=== PATIENT | female | born 1940 | race Caucasian/White ===

== ENCOUNTER 2016-10-25 13:27 | Day surgery (SDC) | payer OTHER ==
[2016-10-25] MEDS ORDERED: LIDOCAINE 1% 5 ML SDV ID PRN (14:23)
[2016-10-25] MEDS ORDERED: LR 1,000 ML IV ONE (14:23)
[2016-10-25] MEDS ORDERED: fentaNYL 100 MCG/2 ML INJ ONE (15:22)
[2016-10-25] MEDS ORDERED: PROPOFOL/EMULSION 500 MG/50 ML BOTTLE IV ONE (15:22)
[2016-10-25] MEDS ORDERED: MEPERIDINE 25 MG/ML SYR ONE (16:34)
[2016-10-25] MEDS ORDERED: ONDANSETRON 4 MG/2 ML VIAL ONE (16:58)
--- NOTE | 2016-10-25 19:11 | GPN ---
[f rep st] PROCEDURE NOTE PREPROCEDURE DIAGNOSIS: Positive Cologuard. POSTPROCEDURE DIAGNOSIS: Normal colonoscopy. MEDICATIONS: Monitored anesthesia care. INDICATIONS: The patient is a 76-year-old female, who had never had a colonoscopy. She did however, have a positive Cologuard test. She is therefore here today for a colonoscopy. The risks and benefits of the procedure were discussed with the patient and consent obtained. The risks include, but are not limited to, bleeding, perforation, missed lesions, and sedation. The patient is ASA class 2. DESCRIPTION OF PROCEDURE: The pediatric colonoscope was advanced to the terminal ileum, which appeared normal. The appendiceal orifice, cecum. IC valve , ascending colon, hepatic flexure, transverse colon, splenic flexure, descending colon, sigmoid colon, and rectum appeared normal. Retroflexed views in the rectum were normal. IMPRESSION: Normal colonoscopy including the terminal ilium. RECOMMENDATIONS: 1. Discharge home with escort. 2. Advance diet as tolerated. 3. Continue current medications. 4. Follow up for a positive Cologuard but a negative colonoscopy is uncertain. I recommend that this be discussed with her PCP. Given her age and a normal screening colonoscopy, one option is to defer any further colonoscopies secondary to age. However, in the setting of the positive Cologuard further work -up may be indicated based on history and discussion with the patient for screening/surveillance of malignancy. 5. Thank you for allowing me to participate in the care of your patient. Thank you for allowing me to participate in the care of your patient. Please do not hesitate to call with questions. /[id number]/MODL [id number]
== END 2016-10-25 18:00 | disposition home or self-care (01) ==
LOC: FSGY 13:27
PROVIDERS: ATTEND Internal Medicine Gastroenterology
PROC: 0DJD8ZZ Inspection of Lower Intestinal Tract, Via Natural or Artificial Opening Endoscopic (ICD-10-PCS; principal; 2016-10-25 15:15)
DX: R19.5 Other fecal abnormalities (principal); Z15.09 Genetic susceptibility to other malignant neoplasm; I10 Essential (primary) hypertension
CPT/HCPCS: J2405; J2704; J3010

== ENCOUNTER → 2019-01-01 | Outpatient (CLI) | payer OTHER | LOC: FIMAGING 12:13 | PROVIDERS: ATTEND Internal Medicine Geriatric Medicine | DX: E04.1 Nontoxic single thyroid nodule (principal); Z12.31 Encounter for screening mammogram for malignant neoplasm of breast; Z78.0 Asymptomatic menopausal state; E28.39 Other primary ovarian failure; M85.80 Other specified disorders of bone density and structure, unspecified site ==

== ENCOUNTER → 2019-01-11 | Outpatient (CLI) | payer OTHER | LOC: FIMAGING 12:19 | PROVIDERS: ATTEND Internal Medicine Geriatric Medicine | DX: R92.8 Other abnormal and inconclusive findings on diagnostic imaging of breast (principal) ==